=== PATIENT | female | born 1995 | race African-American/Black ===

== ENCOUNTER 2017-11-25 09:47 | Day surgery (SDC) | payer OTHER ==
[2017-11-24 13:46] VITALS: BMI 32.1
--- NOTE | 2017-11-25 09:56 | HP ---
Past Medical History - Primary Care Physician PCP:: Prisiclla Andre - Admission Chief Complaint: 22 yrs , LMP 10/24/17 is admitted of IUD removal under hysteroscopic guidance . History of Present Illness: pt had iud (Mirena) inserted 3 yrs ago at [facility] she has been experiencing irregular bleeding , twice a week more than spotting or light bleeding , hence she wanted iud taken out IUD string broke while attempting to remove in the clinic by another provider. 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 Cardiovascular: No: HTN, Murmur Pulmonary: Yes: Asthma Gastrointestinal: No: GERD Renal/: No: UTI Reproductive: No: PID ...: 0 ...LMP: 10/24/17 Heme/Onc: No: Anemia, Bleeding Disorder Infectious Disease: No: STD's Psych: No: Addictions, Anxiety, Bipolar, Depression, Panic, Psychosis Endocrine: No: Diabetes Mellitus, Hyperthyroidism, Hypothyroidism - Past Surgical History Hx Myomectomy: No Hx Transabdominal Cerclage: No Additional Surgical History: Liposuction in 08/2013 - Smoking History Smoking history: Never smoked Have you smoked in the past 12 months: No - Alcohol/Substance Use Hx Alcohol Use: No History of Substance Use: reports: None - Social History History of Recent Travel: No Home Medications - Allergies Allergies/Adverse Reactions: Allergies Allergy/AdvReac Type Severity Reaction Status Date / Time No Known Allergies Allergy Verified 11/24/17 13:28 - Home Medications Home Medications: Ambulatory Orders Albuterol Sulfate Inhaler - [Ventolin Hfa Inhaler -] 2 inh PO PRN PRN 04/05/16 Fluticasone Propionate [Flovent Diskus] 100 mcg IH PRN PRN 11/24/17 Naproxen Sodium [Aleve] 220 mg PO PRN PRN 11/24/17 Physical Exam-RN NEUROLOGY Constitutional: Yes: Well Nourished, No Distress Eyes: Yes: WNL HENT: Yes: WNL Neck: Yes: WNL Cardiovascular: Yes: WNL Respiratory: Yes: WNL Gastrointestinal: Yes: WNL ...Rectal Exam: Yes: Deferred Renal/: Yes: WNL Pelvis: Yes: WNL External Genitalia: Yes: Normal Vaginal Exam: Yes: Normal Cervix: Yes: Normal, Other (iud string not viualised) Uterus: Yes: Normal, Anteverted, Firm Adnexa: Normal: Bilateral, Not Palpable: Bilateral Breast(s): Yes: WNL. No: Mass Musculoskeletal: Yes: WNL Extremities: Yes: WNL. No: Calf Tenderness Edema: No Integumentary: Yes: WNL Neurological: Yes: WNL ...Motor Strength: WNL Psychiatric: Yes: WNL Labs: Laboratory Tests 11/24/17 11/24/17 11/24/17 10:54 10:54 10:54 WBC 7.4 RBC 4.30 Hgb 13.3 Hct 40.0 Plt Count 284 PT with INR 11.50 INR 1.02 Sodium 139 Potassium 4.5 Chloride 104 Carbon Dioxide 26 BUN 12 Creatinine 0.8 Random Glucose 86 AST 13 L ALT 20 Beta HCG, Quant < 1.0 Urine Glucose (UA) Urine Nitrite Ur Leukocyte Esterase Urine WBC (Auto) Urine RBC (Auto) 11/24/17 10:54 WBC RBC Hgb Hct Plt Count PT with INR INR Sodium Potassium Chloride Carbon Dioxide BUN Creatinine Random Glucose AST ALT Beta HCG, Quant Urine Glucose (UA) Negative Urine Nitrite Negative Ur Leukocyte Esterase Trace Urine WBC (Auto) 5 Urine RBC (Auto) 2 Problem List - Problem (1) IUD complication Code(s): T83.9XXA - UNSP COMPLICATION OF GENITOURINARY PROSTH DEV/GRFT, INIT Qualifiers: Mechanical complication type: mechanical breakdown Assessment/Plan 22 yrs , lmp 10/24/17, bhcg neg, is/p failed attempt removal of iud as an outpatient, breaking of string Plan : diagnostic hysteroscopy & removal of IUD
[2017-11-25] MEDS ORDERED: MIDAZOLAM HCL 2 MG/2 ML SINGLE DOSE VIAL ONE (11:31)
[2017-11-25] MEDS ORDERED: DEXAMETHASONE SOD PHOSPHATE 4 MG/1 ML VIAL ONE (11:44)
[2017-11-25] MEDS ORDERED: ceFAZolin SODIUM 1 GM VIAL ONE (11:44)
[2017-11-25] MEDS ORDERED: ceFAZolin SODIUM 1 GM VIAL IVPB ONE (11:44)
[2017-11-25] MEDS ORDERED: KETOROLAC TROMETHAMINE 30 MG/1 ML VIAL ONE (11:44)
[2017-11-25] MEDS ORDERED: ONDANSETRON 4 MG/2 ML VIAL ONE (11:44)
[2017-11-25] MEDS ORDERED: IBUPROFEN 400 MG TABLET (FP) PO PRN (12:00)
[2017-11-25] MEDS ORDERED: ACETAMINOPHEN 325 MG TABLET (FP) PO PRN (12:00)
[2017-11-25] MEDS ORDERED: oxyCODONE HCL 5 MG TABLET PO PRN ×2 (12:00→12:09)
[2017-11-25] MEDS ORDERED: ONDANSETRON 4 MG/2 ML VIAL IVPUSH PRN ×2 (12:02→12:09)
--- NOTE | 2017-11-25 12:13 | OP ---
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 cx normal iud just above cervix in lower segment both ostia visualised , utrine cavity long.em lining thin emc scanty sent to path Surgeon: Priscilla Andre () Anesthesiologist/PORTABLE TRACK CREW CHIEF: Mercedes Rick Anesthesia: General Specimens Removed: iud. emc Estimated Blood Loss (mls): 2 Fluid Volume Replaced (mls): 800 (iv ancef 2 gm given ) Operative Report Dictated: Yes
[2017-11-25] MEDS ORDERED: LACTATED RINGERS SOLUTION 1,000 ML IV SCH (12:15)
--- NOTE | 2017-11-25 12:47 | OP ---
DATE OF OPERATION: 11/25/2017 PREOPERATIVE DIAGNOSIS: Intrauterine device complication breaking of the string. PROCEDURE: Hysteroscopy, dilation of cervix, removal of intrauterine device, and curettage. SURGEON: Priscilla Andre MD ANESTHESIOLOGIST: Mercedes Rick MD ANESTHESIA: General. FINDINGS: This 22-year-old 0, para 0 had an IUD inserted 3 years ago and has irregular bleeding and not sexually active currently. Requests for removal of the IUD. While removing the IUD, string broke in the clinic and then sonogram done IUD is in the lower segment and the patient requests for removal. Did not want another attempt to try due to the pain. DESCRIPTION OF PROCEDURE: The patient was taken to the operating room table. General anesthesia was given. Lithotomy position was given. Pubis, perineum, and vagina were painted with a Betadine drape in the usual manner. Pelvic examination was done. Uterus was anteverted and normal size. Cervix was posterior. Adnexa were not palpable. Weighted speculum was put. Anterior lip of the cervix and was held with a single-tooth tenaculum. Hysteroscope was introduced passing cervical canal, uterine cavity, and the IUD was right in the lower segment above the cervix. Uterine cavity was clean. No lesions were noted. Endometrial lining was very thin. Both ostia were visualized. Hysteroscope removed. Cervix was dilated up to 8 number dilator and then with a Hannah clamp the IUD was removed and then curetting was done. Scanty tissue was obtained and instruments removed. The patient tolerated the procedure well, and she was given 2 g of IV Ancef prior to the incision. She was transferred to the recovery room in stable condition. Aleah [id number]
[2017-11-25 13:45] VITALS: BP 131/79; PULSE 84; TEMP 98.5
--- NOTE | 2017-11-29 11:07 | PATH ---
Surgical Pathology Report Patient Name: LOTUS PATTERSON [facility]. Rec. #: [id number] /Age/Gender: 1995 (Age: 22) / F Account: [id number] Location: [facility] SUR[facility]ICAL Taken: 11/25/2017 Received: 11/25/2017 Reported: 11/29/2017 Physicians: Priscilla Andre M.D. Specimen(s) Received A: IUD B: ENDOMETRIAL CURETTINGS Clinical History IUD complications Final Diagnosis A. OLD IUD, REMOVAL: INTRAUTERINE DEVICE, GROSS EXAMINATION ONLY. B. ENDOMETRIAL CURETTINGS: FRAGMENTS OF BENIGN ENDOMETRIUM WITH SMALL ENDOMETRIAL GLANDS AND FOCALLY DECIDUALIZED STROMA. SEE COMMENT. SEPARATE ENDOCERVICAL TISSUE WITH NO DIAGNOSTIC ABNORMALITIES. Comment: This may with represent exogenous hormone affect. Clinical correlation is recommended. Electronically Signed Yumiko Vinson M.D. Gross Description A. Received fresh labeled "old IUD," is a 3 cm in length white, T-shaped device with attached string, consistent with an IUD. No soft tissue is present. No sections are submitted, gross only. B. Received in formalin labeled "endometrial curettings," is a 1.7 x 1.5 x 0.3 cm aggregate of barba-pink soft tissue fragments admixed with blood-tinged mucous. The formalin is filtered and the specimen is entirely submitted in one cassette. 11/25/201711/25/2017
== END 2017-11-25 14:05 | disposition home or self-care (01) ==
LOC: JASU-SURG 09:47
PROVIDERS: ATTEND Obstetrics & Gynecology
PROC: 0UC98ZZ Extirpation of Matter from Uterus, Via Natural or Artificial Opening Endoscopic (ICD-10-PCS; principal; 2017-11-25 10:30)
PROC: 0UDB7ZZ Extraction of Endometrium, Via Natural or Artificial Opening (ICD-10-PCS; 2017-11-25 10:30)
PROC: 0UJD8ZZ Inspection of Uterus and Cervix, Via Natural or Artificial Opening Endoscopic (ICD-10-PCS; 2017-11-25 10:30)
DX: T83.32XA Displacement of intrauterine contraceptive device, initial encounter (principal)
CPT/HCPCS: 86850; 86900; 86901; 88300-TC; 88305-TC; 94760